=== PATIENT | female | born 1950 | race African-American/Black ===

== ENCOUNTER 2018-11-06 22:03 | Emergency (ER) | payer BC, MEDICAID ==
[~2018-11-06] VITALS: Ht 160 cm; Wt 79.0 kg
[~2018-11-06 22:03] MED LIST: ATENOLOL; CLONIDINE; HYDROCHLOROTHIAZIDE; VICODIN
[2018-11-06 22:46] VITALS: BP 123/74
== END 2018-11-07 01:05 | disposition left against medical advice (07) ==
LOC: ER 22:03
DX: Z53.21 Procedure and treatment not carried out due to patient leaving prior to being seen by health care provider (principal)

== ENCOUNTER 2020-06-15 14:22 | Inpatient (IN) | payer BC, MEDICAID ==
[~2020-06-15] VITALS: Ht 160 cm; Wt 74.6 kg
[2020-06-15] MEDS ORDERED: NITROGLYCERIN 0.4MG TABLET SL SL PRN (16:30)
[2020-06-15] MEDS ORDERED: ASPIRIN 81MG TABLET PO ONE (16:30)
[2020-06-15 16:43] LABS: BASOPHILS % 2.2 % (0.0-2.0); EOSINOPHILS % 3.2 % (0.0-5.0); HEMATOCRIT. 37.7 % (36.0-48.0); HEMOGLOBIN. 12.6 g/dL (12.0-16.0); LYMPHOCYTES % 31.1 % (20.0-50.0); MEAN CORPUSCULAR HEMOGLOBIN 30.2 pg (28.0-32.0); MEAN CORPUSCULAR VOLUME 89.9 fL (81.0-99.0); MONOCYTES % 9.3 % (2.0-8.0); NEUTROPHILS % 54.2 % (40.0-76.0); PLATELET 223 x1000/uL (130-400); RED BLOOD CELL COUNT 4.19 mill/uL (4.2-5.4)
[2020-06-15 16:48] LABS: CHLORIDE 108 mEq/L (98-107)
[2020-06-15 16:54] LABS: D-DIMER 0.7 mg/L FEU (<0.50); PARTIAL THROMBOPLASTIN TIME 27.3 sec (23.4-31.0); PROTHROMBIN TIME 10.3 sec (9.6-11.0)
[2020-06-15] MEDS ORDERED: ACETAMINOPHEN 325MG TABLET PO ONE (19:45)
[2020-06-15] MEDS ORDERED: ACETAMINOPHEN 325MG TABLET PO PRN (22:30)
[2020-06-15] MEDS ORDERED: ONDANSETRON HCL 4MG/2ML INJ IV PRN (22:30)
[2020-06-15 23:20] VITALS: BP 138/66
[2020-06-15] MEDS ORDERED: LOSA100T3 PO (23:31)
[2020-06-15] MEDS ORDERED: AMLO5TAB88 PO (23:34)
[2020-06-15] MEDS ORDERED: ATOR20TA65 PO (23:35)
[2020-06-16] VITALS: BP 138/86
[2020-06-16] MEDS: HYDROCODONE/ACETAMINOPHEN 5/325MG TABLET PO PRN ×4 (00:10→23:42)
[2020-06-16] MEDS: ZOLPIDEM TARTRATE 5MG TABLET PO PRN ×2 (00:10→23:39)
[2020-06-16 05:09] VITALS: BP 107/66
[2020-06-16 08:00] VITALS: BP 147/87
[2020-06-16] MEDS: ASPIRIN 81MG TABLET PO SCH (09:43)
[2020-06-16] MEDS: LOSARTAN POTASSIUM 50 MG TABLET PO SCH ×2 (09:43)
[2020-06-16] MEDS: AMLODIPINE 10MG TABLET PO SCH (09:43)
[2020-06-16] MEDS ORDERED: TRAMADOL 50MG TABLET PO PRN (11:30)
[2020-06-16] MEDS ORDERED: TRAMADOL 50MG TABLET PO NR (11:30)
[2020-06-16 12:00] VITALS: BP 144/94
[2020-06-16 14:10] LABS: CLARITY URINE CLEAR (CLEAR); COLOR URINE YELLOW (YELLOW); KETONES URINE NEGATIVE (NEGATIVE); LEUKOCYTE ESTERASE URINE NEGATIVE (NEGATIVE); NITRITE URINE NEGATIVE (NEGATIVE); OCCULT BLOOD URINE NEGATIVE (NEGATIVE); PH URINE 7.5 (4.5-8.0); PROTEIN URINE NEGATIVE (NEGATIVE); SPECIFIC GRAVITY URINE 1.007 (1.005-1.030); UROBILINOGEN URINE 0.2 E.U./dL (0.2-1.0)
[2020-06-16 16:00] VITALS: BP 124/69
[2020-06-16 20:00] VITALS: BP 138/81
[2020-06-16] MEDS ORDERED: ATORVASTATIN CALCIUM 40MG TABLET PO SCH (21:00)
[2020-06-16] MEDS: METOPROLOL TARTRATE 25MG TABLET PO SCH (21:30)
[2020-06-17] VITALS: BP 131/79
[2020-06-17 04:00] VITALS: BP 134/69
[2020-06-17 08:00] VITALS: BP 135/82
[2020-06-17] MEDS: ASPIRIN 81MG TABLET PO SCH (09:04)
[2020-06-17] MEDS: AMLODIPINE 10MG TABLET PO SCH (09:04)
[2020-06-17] MEDS: LOSARTAN POTASSIUM 50 MG TABLET PO SCH (09:05)
[2020-06-17] MEDS: METOPROLOL TARTRATE 25MG TABLET PO SCH (09:05)
[2020-06-17 12:00] VITALS: BP 135/72
[2020-06-17] MEDS ORDERED: DILT120C88 MT (15:13)
[2020-06-17] MEDS ORDERED: ASPI-1160 PO (15:13)
[2020-06-17 15:36] VITALS: BP 133/78
[2020-06-17 16:44] VITALS: BP 133/78
[2020-06-17] MEDS ORDERED: DILTIAZEM HCL 60MG TABLET PO SCH (18:00)
== END 2020-06-17 17:02 | disposition home or self-care (01) | DRG 206 ==
LOC: ER 14:22 → 5WST 18:15 → EDBEDREQ 18:17 → EDBEDREQTM 18:17 → ENRESERV 21:10
PROVIDERS: ADMIT Internal Medicine; ATTEND Internal Medicine
DX: M94.0 Chondrocostal junction syndrome [Tietze] (principal); I16.0 Hypertensive urgency; E66.9 Obesity, unspecified; E78.00 Pure hypercholesterolemia, unspecified; E78.5 Hyperlipidemia, unspecified; E87.8 Other disorders of electrolyte and fluid balance, not elsewhere classified; F12.90 Cannabis use, unspecified, uncomplicated; I10 Essential (primary) hypertension; Z20.822 Contact with and (suspected) exposure to COVID-19; K44.9 Diaphragmatic hernia without obstruction or gangrene; I51.7 Cardiomegaly; R51.9 Headache, unspecified; M32.9 Systemic lupus erythematosus, unspecified; Z68.28 Body mass index [BMI] 28.0-28.9, adult; Z88.8 Allergy status to other drugs, medicaments and biological substances; Z79.899 Other long term (current) drug therapy; Z90.49 Acquired absence of other specified parts of digestive tract
CPT/HCPCS: 36415; 71045; 71275; 80053; 80061; 81003; 83880; 84443; 84484; 85025; 85379; 85651; 86038; 86430; 93005; 93306; 99285

== ENCOUNTER 2022-11-17 10:08 | Emergency (ER) | payer BC, MEDICAID ==
[~2022-11-17] VITALS: Ht 162.6 cm; Wt 68.0 kg
[~2022-11-17 10:08] MED LIST changes: +ASPI-1160 PO; -ATENOLOL; +ATOR20TA65 PO; -CLONIDINE; +DILT120C88 MT; -HYDROCHLOROTHIAZIDE; +LOSA100T4 PO; -VICODIN
[2022-11-17 10:27] VITALS: BP 134/77; PULSE 61; RESP 20; TEMP 98.2; O2SAT 96
[2022-11-17 11:26] LABS: BASOPHILS % 1.6 % (0.0-2.0); EOSINOPHILS % 2.1 % (0.0-5.0); HEMATOCRIT. 36.3 % (36.0-48.0); HEMOGLOBIN. 12.3 g/dL (12.0-16.0); LYMPHOCYTES % 25.1 % (20.0-50.0); MEAN CORPUSCULAR VOLUME 88.6 fL (81.0-99.0); MEAN PLATELET VOLUME 7.8 fl (7.4-10.4); MONOCYTES % 9.1 % (2.0-8.0); NEUTROPHILS % 62.1 % (40.0-76.0); PLATELET 232 x1000/uL (130-400); RED CELL DISTRIBUTION WIDTH 13.1 % (11.6-14.6)
[2022-11-17 11:35] LABS: CHLORIDE 106 mEq/L (98-107)
== END 2022-11-17 12:30 | disposition home or self-care (01) ==
LOC: ER 10:22
DX: R51.9 Headache, unspecified (principal); I10 Essential (primary) hypertension; E78.00 Pure hypercholesterolemia, unspecified; Z90.49 Acquired absence of other specified parts of digestive tract
CPT/HCPCS: 36415; 80053; 81025; 83880; 85025; 99283

== ENCOUNTER 2023-02-02 17:56 | Emergency (ER) | payer BC, MEDICAID ==
[~2023-02-02] VITALS: Ht 160 cm; Wt 81.6 kg
[~2023-02-02 17:56] MED LIST changes: +LOSA-415 PO; -LOSA100T4 PO
[2023-02-02 18:15] VITALS: O2SAT 100
[2023-02-02] MEDS ORDERED: LIDOCAINE 5% PATCH TOP SCH (21:00)
[2023-02-02] MEDS ORDERED: METHOCARBAMOL 750MG TABLET PO SCH (21:00)
[2023-02-02] MEDS ORDERED: HYDROCODONE/ACETAMINOPHEN 5/325MG TABLET PO ONE (21:00)
[2023-02-02 21:37] VITALS: BP 162/89
[2023-02-02] MEDS ORDERED: LIDO1ADH23 TP (22:08)
[2023-02-02] MEDS ORDERED: METH-653 MT (22:08)
[2023-02-02 22:34] VITALS: PULSE 72; RESP 18; TEMP 98.2
== END 2023-02-02 22:35 | disposition home or self-care (01) ==
LOC: ER 17:56
DX: M53.3 Sacrococcygeal disorders, not elsewhere classified (principal); E78.00 Pure hypercholesterolemia, unspecified; I10 Essential (primary) hypertension; Z90.49 Acquired absence of other specified parts of digestive tract; Z79.899 Other long term (current) drug therapy
CPT/HCPCS: 72110; 72170; 99284